=== PATIENT | female | born 1990 | race Caucasian/White ===

== ENCOUNTER 2020-08-01 12:09 | Outpatient (REF) | payer MEDICAID, SELFPAY | END 2020-08-01 12:10 | disposition home or self-care (01) | LOC: HO.HOSX 12:09 | PROVIDERS: Visit Provider Orthopaedic Surgery | DX: Z13.89 Encounter for screening for other disorder (principal) ==

== ENCOUNTER 2020-08-29 15:02 | Outpatient (REF) | payer MEDICAID, SELFPAY | END 2020-08-29 15:03 | disposition home or self-care (01) | LOC: HO.HOSX 15:02 | PROVIDERS: Visit Provider Orthopaedic Surgery | DX: Z13.89 Encounter for screening for other disorder (principal) ==

== ENCOUNTER 2020-09-06 17:09 | Outpatient (REF) | payer OTHER, SELFPAY ==
--- NOTE | ~2020-09-06 | XR_ITS ---
EXAMINATION: XR HAND, LEFT CLINICAL INFORMATION: Left hand pain. COMPARISON: None TECHNIQUE: PA, lateral, and oblique views of the left hand. FINDINGS: No focal soft tissue swelling or periarticular osteopenia is seen. There is no joint space narrowing, osteophytosis or chondrocalcinosis. No erosions are seen. Small bone island is noted in the head of the proximal phalanx. Otherwise no lytic or blastic osseous lesions. XR/XR hand LT min 3V IMPRESSION: No radiographic evidence of inflammatory or erosive arthropathy involving the left hand
== END 2020-09-06 17:10 | disposition home or self-care (01) ==
LOC: HO.HOSX 17:09
PROVIDERS: Visit Provider Orthopaedic Surgery
DX: M79.642 Pain in left hand (principal)
CPT/HCPCS: 73130

== ENCOUNTER → 2020-09-07 08:44 | Outpatient (BNVA) | payer OTHER, SELFPAY | PROVIDERS: PCP Internal Medicine; Visit Provider Orthopaedic Surgery | DX: S63.649A Sprain of metacarpophalangeal joint of unspecified thumb, initial encounter (principal) | CPT/HCPCS: 99202 ==

== ENCOUNTER 2020-10-06 06:09 | Day surgery (SDC) | payer OTHER, SELFPAY ==
[2020-09-29 12:43] VITALS: BMI 18.8
--- NOTE | 2020-10-05 08:51 | HO.ANESPROP2 ---
HPI - Anesthesia Eval Consult details Narrative: 30yo F for Left Ulnar Collateral Thumb Ligament Repair h/o ETOH abuse - ? current [facility] Active Problems Active Problems: All Active Problems (Updated 09/07/20 @ 09:55 by Fatou Nguyen MD) Skier's thumb (Acute) Past Medical History Medical History Anxiety Depression H/O ETOH abuse HTN (hypertension) Social History Social History Smoking Status: Current every day smoker Tobacco Type: Cigarette Advance Directives Information Provided: No Current occupational status: employed Current occupation: right handed/security assistant Meds Allergies Allergy/AdvReac Type Severity Reaction Status Date / Time No Known Allergies Allergy Verified 09/07/20 09:03 [No Known Allergies*] Home Medications Medication Instructions Recorded Confirmed Last Taken Type quetiapine 25 mg tablet 25 mg PO DAILY 09/07/20 09/29/20 Unknown History Exam Exam Date and Time: October 05, 2020 0851 Height,Weight and Vital Signs: Height 5 ft 2.5 in Weight 47.627 kg Assessment and Plan Assessment Anesthesia Assessment: Chart Reviewed
[2020-10-06] VITALS (7 sets, daily range): BP systolic 122–153; BP diastolic 86–99; PULSE 69–84; RESP 16–17; TEMP 36.7–36.8; O2SAT 96–99
[2020-10-06 06:25] LABS: UPreg QC Valid YES; Urine Pregnancy NEGATIVE (NEGATIVE)
[2020-10-06] MEDS: ceFAZolin Sodium/Dextrose,Iso 2 GM/50 ML PIGGYBACK IV (06:46)
[2020-10-06] MEDS: Lactated Ringers 1,000 ML 100 ML IVCONT (06:46)
--- NOTE | 2020-10-06 07:22 | HO.ANESPROP2 ---
FORMERLY [facility], 1928–1983 Active Problems Active Problems: All Active Problems (Updated 10/05/20 @ 08:52 by Pam Urias) Skier's thumb (Acute) Past Medical History Medical History Anxiety Depression H/O ETOH abuse HTN (hypertension) Social History Social History Smoking Status: Current every day smoker Tobacco Type: Cigarette Advance Directives Information Provided: No Current occupational status: employed Current occupation: right handed/security services specialist Meds Allergies Allergy/AdvReac Type Severity Reaction Status Date / Time No Known Allergies Allergy Verified 09/07/20 09:03 [No Known Allergies*] Active Medications: Current Medications Generic Name Dose Route Start Last Admin Trade Name Caydenq PRN Reason Stop Dose Admin Cefazolin Sodium/Dextrose 2 gm in 50 mls @ 100 mls/hr 10/06/20 07:00 10/06/20 06:46 Ancef IV 10/06/20 07:29 100 mls/hr PREOP ONE Administration Lactated Ringer's 1,000 mls @ 100 mls/hr 10/06/20 06:15 10/06/20 06:46 Lr IVCONT 100 mls/hr .Q10H KATRINA Administration Home Medications Medication Instructions Recorded Confirmed Last Taken Type quetiapine 25 mg tablet 25 mg PO DAILY 09/07/20 09/29/20 Unknown History Exam Exam Date and Time: October 06, 2020 0722 Height,Weight and Vital Signs: Height 5 ft 2.5 in Weight 47.627 kg Last Vital Signs Temp 98.2 F 10/06/20 06:16 Pulse 78 10/06/20 06:16 Resp 16 10/06/20 06:16 BP 153/96 H 10/06/20 06:16 Pulse Ox 96 10/06/20 06:16 Pertinent Lab Results Pertinent Lab Results: Laboratory Tests 10/06/20 06:16 Urine Test NEGATIVE Airway Mallampati Class: II TM Dist: >3cm Neck ROM: Full Heart: RRR Lungs: CTA
--- NOTE | 2020-10-06 07:42 | MHC.SHP ---
Pre-Procedural Eval Section B Chief Complaint: sprain of tumb Allergies: Allergies Allergy/AdvReac Type Severity Reaction Status Date / Time No Known Allergies Allergy Verified 09/07/20 09:03 [No Known Allergies*] Plan I have reviewed the history and physical and performed a pertinent physical examination on my patient. No changes have occurred unless specified.
--- NOTE | 2020-10-06 07:44 | W.PM.OPN ---
Operative Note Operative Note Date of Service: 10/06/20 Narrative: Operative Note Narrative: Preop diagnosis: 1. [ ] Thumb MCP joint ulnar collateral ligament tear Postop diagnosis: Same Procedure: 1. [ ] Thumb MCP joint ulnar collateral ligament repair Surgeon: Fatou Nguyen MD Anesthesia: Mac plus regional block Findings: [ ] Implants: [ ] Tourniquet time: [ ] minutes EBL: 5.0 ml Specimen: None Drains: None Complications: None Disposition: Brought to the recovery room in stable condition Plan: [ ] Follow-up in 10-14 days for wound check, suture removal and placement in a thumb spica cast Indications: The patient is [ ] years old with a [ ] thumb MCP joint ulnar collateral ligament tear . The risks and benefits of operative treatment, including but not limited to risk of damage to blood vessels, nerves, tendons, infection, recurrence, persistent pain or numbness, incomplete resolution of preoperative symptoms, or need for further surgery were discussed with the patient and they wished to proceed with surgery. Procedure: Once consent was obtained patient was brought back to the operating suite and placed in the operating table in a supine position. [A regional block was performed by the anesthesia team]. Perioperative antibiotics and anesthesia was administered by the anesthesia team. A tourniquet was applied to the proximal aspect of the [ ] upper extremity and the limb was prepped and draped in a standard surgical fashion. The limb was elevated exsanguinated with Esmarch bandage and the tourniquet inflated to 250 mm of mercury for a total tourniquet time of [ ] minutes. A lazy-S incision was made over the ulnar aspect of the patient's [ ] thumb MCP joint. Incision was made through the skin to the subcutaneous tissues using a 15. Blade. [ ] [ ] At this point the tourniquet was deflated and hemostasis obtained with a brief period of local pressure and bipolar electrocautery. The wound was copiously irrigated with normal saline. The subcutaneous layer was closed with 4-0 Vicryl suture, and the skin edges were reapproximated with 5-0 nylon suture. The wound was infiltrated with some 0.25% plain Marcaine for postop pain control and a sterile dressing was applied. The patient was placed in a short-arm thumb spica splint. The patient appears to have tolerated the procedure well and with no complications. All digits were well vascularized conclusion of the case.
--- NOTE | 2020-10-06 09:36 | P.OP_ITS ---
Operative Note Operative Note Date of Service: 10/06/20 Narrative: Operative Note Narrative: Preop diagnosis: 1. Left Thumb MCP joint ulnar collateral ligament tear Postop diagnosis: Same Procedure: 1. Left Thumb MCP joint ulnar collateral ligament repair Surgeon: Fatou Nguyen MD Anesthesia: Mac plus regional block Findings: Ulnar collateral ligament found to be detached from its insertion to the base of the proximal phalanx Implants: None Tourniquet time: 35 minutes EBL: 5.0 ml Specimen: None Drains: None Complications: None Disposition: Brought to the recovery room in stable condition Plan: Follow-up in 10-14 days for wound check, suture removal and placement in a thumb spica cast Indications: The patient is 30 years old with a left thumb MCP joint ulnar collateral ligament tear . The risks and benefits of operative treatment, incl uding but not limited to risk of damage to blood vessels, nerves, tendons, infection, recurrence, persistent pain or numbness, incomplete resolution of preoperative symptoms, or need for further surgery were discussed with the patient and they wished to proceed with surgery. Procedure: Once consent was obtained patient was brought back to the operating suite and placed in the operating table in a supine position. . Perioperative antibiotics and anesthesia was administered by the anesthesia team. A tourniquet was applied to the proximal aspect of the left upper extremity and the limb was prepped and draped in a standard surgical fashion. The limb was elevated exsanguinated with Esmarch bandage and the tourniquet inflated to 250 mm of mercury for a total tourniquet time of 35 minutes. A lazy-S incision was made over the ulnar aspect of the patient's left thumb MCP joint. The Incision was made through the skin to the subcutaneous tissues using a 15. Blade. I then dissected down to the level of the adductor expansion. Care was taken to protect the overlying cutaneous nerves and vessels. I made an L-shaped incision parallel to and just below the EPL tendon extending dista lly and then turning volarly towards the volar aspect of the MCP joint. This was done with a 15. Blade. The plane was developed between the overlying adductor expansion and the underlying ulnar collateral ligament and joint capsule. There was no Stener lesion. In this case the ulnar collateral ligament was noted to be detached from its insertion in the ulnar base of the proximal phalanx. The ligament was carefully mobilized. I was able to then repair it directly to the ulnar base of the proximal phalanx using some 3-0 Ethibond suture material. This significantly increased the stability of the thumb. I then repaired the adductor expansion with some 3-0 Ethibond and 4-0 Vicryl suture. Again I was happy with the improved stability of the thumb to gentle testing. At this point the tourniquet was deflated and hemostasis obtained with a brief period of local pressure and bipolar electrocautery. The wound was copiously irrigated with normal saline. The subcutaneous layer was closed with 4-0 Vicryl suture, and the skin edges were reapproximated with 5-0 nylon suture. The wound was infiltrated with some 0.25% plain Marcaine for postop pain control and a sterile dressing was applied. The patient was placed in a short-arm thumb spica splint. The patient appears to have tolerated the procedure well and with no complications. All digits were well vascularized conclusion of the case.
[2020-10-06] MEDS: oxyCODONE HCl Immed Release 5 MG TABLET PO (10:18)
== END 2020-10-06 11:00 | disposition home or self-care (01) ==
PROVIDERS: Nurse Practitioner; PCP Internal Medicine; Visit Provider Orthopaedic Surgery
PROC: (CPT 26540; principal; 2020-10-06 07:30)
DX: S63.642A Sprain of metacarpophalangeal joint of left thumb, initial encounter (principal); W50.2XXA Accidental twist by another person, initial encounter; Y93.89 Activity, other specified; Y92.9 Unspecified place or not applicable; Y99.8 Other external cause status; I10 Essential (primary) hypertension; F32.9 Major depressive disorder, single episode, unspecified; Z79.899 Other long term (current) drug therapy
CPT/HCPCS: 26540; 81025; J0690; J1100; J1200; J1885; J2250; J2405; J3010

== ENCOUNTER → 2020-10-19 12:47 | Outpatient (BNVA) | payer OTHER, SELFPAY | PROVIDERS: PCP Internal Medicine; Visit Provider Orthopaedic Surgery | DX: S63.649D Sprain of metacarpophalangeal joint of unspecified thumb, subsequent encounter (principal) | CPT/HCPCS: 99212 ==

== ENCOUNTER → 2020-11-11 09:31 | Outpatient (BNVA) | payer OTHER, SELFPAY | PROVIDERS: Visit Provider Orthopaedic Surgery | DX: S63.649D Sprain of metacarpophalangeal joint of unspecified thumb, subsequent encounter (principal) | CPT/HCPCS: 99212 ==